=== PATIENT | male | born 1965 ===

== ENCOUNTER 2019-07-02 07:45 | Inpatient (IN) | payer OTHER ==
[~2019-07-02] VITALS: Ht 170.2 cm; Wt 70.3 kg
[~2019-07-02 07:45] MED LIST: ACET325 PO; ACET325 PT; ALBU3IS INH; ALBU3IS NEB; ALEN70 PEG; ANTI-FUNGAL CR113 GM TOP; BACL10 PO; BACL20 PEG; BISA10S PR; Baclofen20 MG PT; CHOL10002 PO; CHOL10002 PT; CODGUAEL PT; Calmoseptine Oi71 GM TP; Ciprofloxa400 MG/200 IV; DEPAKENE S PT; DIVA125 PO; DIVA125EC PO; DIVA500EC; DOCU100 PT; FAMO20 PO; HEPARIN SOD U SC; HYDMETSO BOTHEYES; IBUP100S PO; ISOSOURCE 1.51000 ML PT; JEVITY CA PT; Keppra100 MG/1 M PT; LAMO100; LANS15EC PT; LAVAP17G PO; LEVE500; LEVE500 PEG; LEVE500 PO; LEVO750 PT; Lacri-Lube S.O3.5 GM BOTHEYES; Laxative5 M1 PT; MICO100S TOP; Milk Of Ma800 MG/5 M PT; NAPR500 PO; NYSTRITC TOP; OMEP20ER PO; OPTLUBOPO OD; PANT40 PO; Phenergan25 MG PR; Prevacid Soluta30 MG PT; ROBITUSSIN COU118 ML PT; SACC250C PO; TAZICEF IV; TRIPLE ANTIBIOT28 GM TP; Tazicef2 GM IV; VALP250 PEG; VALP250S60 PO; VALP250S60 PT; [UNRECOGNIZED DRUG - OTHER] SC
[2019-07-02 08:41] LABS: BASOPHILS ABSOLUTE AUTO 0.02 K/mm3 (0.00-0.23); BASOPHILS PERCENT AUTO 0 % (0-2); EOSINOPHILS ABSOLUTE AUTO 0.04 K/mm3 (0.00-0.68); EOSINOPHILS PERCENT AUTO 0 % (0-6); Hematocrit 45.9 % (37.0-53.0); Hemoglobin 15.4 g/dL (13.5-17.5); IMMATURE GRAN ABSOLUTE AUTO 0.04 K/mm3 (0.00-0.10); IMMATURE GRAN PERCENT AUTO 0 % (0-1); LYMPHOCYTES ABSOLUTE AUTO 0.99 K/mm3 (0.84-5.20); LYMPHOCYTES PERCENT AUTO 9 % (21-46); MONOCYTES ABSOLUTE AUTO 0.67 K/mm3 (0.16-1.47); MONOCYTES PERCENT AUTO 6 % (4-13); Mean Corpuscular HGB 31.4 pg (26.0-34.0); Mean Corpuscular HGB Conc 33.6 g/dL (31.5-36.5); Mean Platelet Volume 11.6 fL (9.1-12.4); NEUTROPHILS ABSOLUTE AUTO 9.22 K/mm3 (1.96-9.15); NEUTROPHILS PERCENT AUTO 84 % (41-73); Platelet Count 245 K/mm3 (150-400); RDW Coefficient Variation 12.6 % (11.7-14.2); RDW Standard Deviation 43.2 fL (35.1-46.3); Red Blood Cell Count 4.91 M/mm3 (4.30-5.90); White Blood Cell Count 10.98 K/mm3 (4.00-11.30)
[2019-07-02 08:43] LABS: Mean Corpuscular Volume 94 fL (80-100)
[2019-07-02 09:02] LABS: Alanine Aminotransfer (ALT/SGP 16 U/L (12-78); Albumin/Globulin Ratio 0.8 (0.8-1.8); Alk Phos 166 U/L (50-136); Anion Gap 5 mmol/L (6-16); Aspartate Aminotrans (AST/SGOT 14 U/L (12-37); Bilirubin, Total 0.4 mg/dL (0.1-1.0); Blood Urea Nitrogen 14 mg/dL (8-24); Bun/Creatinine Ratio 20.8 (12.0-20.0); CO2, Blood 29 mmol/L (21-32); Chloride, Blood 105 mmol/L (98-108); Creatinine, Blood 0.67 mg/dL (0.60-1.20); Glomerular Filtration Rate >60 (60-); Glucose, Blood 86 mg/dL (70-99); Potassium, Blood 4.1 mmol/L (3.5-5.5); Sodium, Blood 139 mmol/L (136-145); Troponin I <0.015 ng/mL (0.000-0.040)
--- NOTE | 2019-07-02 14:19 | NUR ---
Pt visit this afternoon. Pt is resting in bed and responds with yes or no questions by shaking his head. Pt's caregiver Emilee is at bedside. Pt reports pain in his left hand and rates it at 10/10. Emilee reports Pt takes tylenol and ibuprofen at home to manage his pain. Currently Tylenol is on emar and Pt is agreeable with this medication for pain management. Bedside nurse Dottie is present during visit. Discussed POLST on file and confirmed with Pt that wishes are the same. POLST completed as DNR and comfort measures only. Pt is agreeable with receiving antibiotics as a comfort measure. POLST was completed by Pt's father Tam. Discussed with Pt's caregiver Emilee of Pt's needs. Emilee reports Pt requires assistance with feeding, dressing, bathing, and experiences intermittent incontinence. Pt occasionally is able to use urinal. Pt is a daniel lift for transfers and is unable to sit up right on his own. Pt is agreeable with palliative care to have further discussions at a later time. Pt is also agreeable with contacting father if needed. Spoke with Dr Go, discussed POLST and Pt's wishes. Changed Pt's code status from Full Code to DNR per V/O from Dr Go. Palliative Care will F/U for therapeutic visits, symptom management, and discussion with family when they visit.
--- NOTE | 2019-07-02 16:42 | NUR ---
Pt's father visiting this afternoon. Discussed goals of care including wishes for life sustaining measures. Pt earlier agreed to 2 completely different goals of care and with Pt answering yes and no only it is difficult to assess Pt's understanding. Previous POLST forms completed has been by Pt's father Tam. Educated Tam on life sustaining measures including risk factors. Tam reports Pt's wishes are to be a DNR. Tam also calls his and discusses with her. This RN could her through the phone saying Pt needs to be a DNR. Assisted Tam in completing new POLST for Pt with choices of DNR and Limited Treatment. Educated Tam on disease process and trajectory of disease with V/U made by Tam. Tam reports no other concerns at this time. Pt appears comfortable with no S/S of distress at this time. Spoke with bedside nurse and discussed case. Spoke with Dr Go and she signs new completed POLST. Faxed copy of POLST to medical records and placed original POLST in chart. Original POLST will need to return home with Pt. Palliative Care will remain available.
--- NOTE | 2019-07-02 18:42 | NUR ---
SHIFT NOTE PT ARRIVED FROM ED WITH LIGHTNING ROD ERECTOR, ADMIT QUESTIONS ARE ANSWERED BY CAREGIVER FROM [facility]. PT ALERT, CONFUSED WITH GARBLED SPEECH WHICH PER CAREIGVER IS PT'S BASELINE. PT c HX OF CEREBRAL PALSY. BOOTIES PUT ON FEET TO PREVENT BREAKDOWN. MEDIPLEX PLACED ON COCYX FOR STAGE 1 BREAKDOWN NOTED, SKIN REMAINS INTACT ONLY REDDENED. PT WITH PRODUCTIVE SOUNDING COUGH ABLE TO SUCTION A SCANT AMT OF SPUTUM. CONDOM CATH PLACED.
--- NOTE | 2019-07-03 00:42 | NUR ---
NO IV ACCESS PT RECEIVING MEDICATIONS VIA PEG TUBE. CALL TO RAM CAR OPERATOR SADIA TO REPORT PT SELF REMOVAL OF IV W/ OKAY FOR PT TO BE W/OUT IV ACCESS "FOR TONIGHT" & TO THEN REEVALUATE NEED FOR IV TOMORROW.
[2019-07-03 03:42] LABS: BASOPHILS ABSOLUTE AUTO 0.02 K/mm3 (0.00-0.23); BASOPHILS PERCENT AUTO 0 % (0-2); EOSINOPHILS ABSOLUTE AUTO 0.03 K/mm3 (0.00-0.68); EOSINOPHILS PERCENT AUTO 0 % (0-6); Hematocrit 47.6 % (37.0-53.0); Hemoglobin 15.9 g/dL (13.5-17.5); IMMATURE GRAN ABSOLUTE AUTO 0.05 K/mm3 (0.00-0.10); IMMATURE GRAN PERCENT AUTO 1 % (0-1); LYMPHOCYTES ABSOLUTE AUTO 1.27 K/mm3 (0.84-5.20); LYMPHOCYTES PERCENT AUTO 17 % (21-46); MONOCYTES ABSOLUTE AUTO 0.71 K/mm3 (0.16-1.47); MONOCYTES PERCENT AUTO 9 % (4-13); Mean Corpuscular HGB 32.1 pg (26.0-34.0); Mean Corpuscular HGB Conc 33.4 g/dL (31.5-36.5); Mean Corpuscular Volume 96 fL (80-100); Mean Platelet Volume 11.6 fL (9.1-12.4); NEUTROPHILS ABSOLUTE AUTO 5.56 K/mm3 (1.96-9.15); NEUTROPHILS PERCENT AUTO 73 % (41-73); Platelet Count 275 K/mm3 (150-400); RDW Coefficient Variation 12.4 % (11.7-14.2); RDW Standard Deviation 43.5 fL (35.1-46.3); Red Blood Cell Count 4.96 M/mm3 (4.30-5.90); White Blood Cell Count 7.64 K/mm3 (4.00-11.30)
[2019-07-03 04:03] LABS: Alanine Aminotransfer (ALT/SGP 20 U/L (12-78); Albumin/Globulin Ratio 0.7 (0.8-1.8); Alk Phos 171 U/L (50-136); Anion Gap 4 mmol/L (6-16); Aspartate Aminotrans (AST/SGOT 18 U/L (12-37); Bilirubin, Total 0.4 mg/dL (0.1-1.0); Blood Urea Nitrogen 12 mg/dL (8-24); Bun/Creatinine Ratio 16.9 (12.0-20.0); CO2, Blood 30 mmol/L (21-32); Chloride, Blood 110 mmol/L (98-108); Creatinine, Blood 0.71 mg/dL (0.60-1.20); Globulin, Blood 4.2 g/dL (2.2-4.0); Glomerular Filtration Rate >60 (60-); Glucose, Blood 72 mg/dL (70-99); Magnesium, Blood 2.2 mg/dL (1.6-2.4); Phosphorus, Blood 3.2 mg/dL (2.5-4.9); Potassium, Blood 3.9 mmol/L (3.5-5.5); Sodium, Blood 144 mmol/L (136-145); Total Protein, Blood 7.2 g/dL (6.4-8.2)
[2019-07-03 06:21] LABS: Adenovirus Not Detected (NOT DETECT); Bordetella pertussis Not Detected (NOT DETECT); Chlamydophila pneumoniae Not Detected (NOT DETECT); Coronavirus 229E Not Detected (NOT DETECT); Coronavirus HKU1 Not Detected (NOT DETECT); Coronavirus NL63 Not Detected (NOT DETECT); Coronavirus OC43 Not Detected (NOT DETECT); Human Metapneumovirus Not Detected (NOT DETECT); Human Rhinovirus/Enterovirus Not Detected (NOT DETECT); Influenza A Not Detected (NOT DETECT); Influenza A/2009-H1 Not Detected (NOT DETECT); Influenza A/H1 Not Detected (NOT DETECT); Influenza A/H3 Not Detected (NOT DETECT); Influenza B Not Detected (NOT DETECT); Mycoplasma pneumoniae Not Detected (NOT DETECT); Parainfluenza Virus 1 Not Detected (NOT DETECT); Parainfluenza Virus 2 Not Detected (NOT DETECT); Parainfluenza Virus 3 Not Detected (NOT DETECT); Parainfluenza Virus 4 Not Detected (NOT DETECT); Respiratory Syncytial Virus Not Detected (NOT DETECT)
--- NOTE | 2019-07-03 06:25 | NUR ---
SHIFT SUMMARY PT ALERT, ANSWERING SOME Y/N Q'S. PT LAUGHING W/ CAREGIVER WHEN CAREGIVER AT BEDSIDE TO SEE PT, OTHERWISE PT FLAT AND WITHDRAWN. VSS. SPO2 > 92% ON 3.5L NC. MONITOR SHOWS NSR, HR 70'S. TF & FLUSHES VIA PEG TUBE PER TF SCHEDULE W/ HOB ELEVATED. PT TOLERATING WELL. PT W/ LOOSE, BROWN/YELLOW BM'S THIS SHIFT. CONDOM CATH IN PLACE, DRAINING CLEAR YELLOW URINE. PT W/ NO IV ACCESS AT THIS TIME W/ OKAY FROM W/ PLAN FOR REEVALUATION OF IV NEED TODAY. Q2H REPOSITIONING BY STAFF. WILL CONTINUE TO MONITOR AND PROVIDE CARE UNTIL REPORT OFF TO DAY SHIFT RN.
--- NOTE | 2019-07-03 11:31 | NUR ---
NUTRITIONAL FORMULA INFUSING WELL
--- NOTE | 2019-07-03 14:21 | NUR ---
AWAITING MEDICATIONS FROM PHARMACY FOR 1400 MEDICATION ADMIN
--- NOTE | 2019-07-03 16:36 | NUR ---
PT REPORTED ABD PAIN THAT WAS RELIEVED WITH TYLENOL ADMINISTRATION. ABD SOFT AND ROUND, DENIES PAIN WITH PALPATION. PT REPOSITIONED AT THIS TIME
--- NOTE | 2019-07-03 16:54 | NUR ---
SHIFT NOTE PT REMAINED AT BASELINE MENTAL STATUS T/O SHIFT. Q2 HOUR TURNING PERFORMED T/O SHIFT. PT HAS NOT REQUIRED ANY SUCTIONING TODAY. URINE DRAINGING WELL TO CONDOM CATH. STAFF FROM [facility] WAS ONLY PRESENT ONCE THIS AM. PT DID REPORT SOME ABD PAIN TOWARDS THE END OF SHIFT THAT HE REPORTS RESOLVED WITH ADMIN OF TYLENOL. G TUBE FLUSHED EASILY. PT DID RECIEVE TWO INFUSOIONS OF NUTRITIONAL FORMULA. PT WAS VISITED THIS AM BY DIETARY. VSS T/O SHIFT
--- NOTE | 2019-07-03 17:18 | NUR ---
RT HAS JUST COMPLETED WITH THERAVEST TREATMENT WILL HOLD NUTRITION SUUPLEMENT FOR 30 MIN POST TREATMENT
--- NOTE | 2019-07-03 20:07 | NUR ---
CARE ASSUMPTION PT ALERT, SAYING SOME WORDS, ANSWERING Y/N Q'S. MONITOR SHOWS ST, HR 110'S. LUNG SOUNDS COARSE, DIM IN BASES. SPO2 > 92% ON 3L NC. VSS. CONDOM CATH PATENT AND DRAINING CLEAR YELLOW URINE. PEG TUBE CLAMPED. WILL CONTINUE TO MONITOR AND PROVIDE CARE.
[2019-07-04 03:32] LABS: BASOPHILS ABSOLUTE AUTO 0.01 K/mm3 (0.00-0.23); BASOPHILS PERCENT AUTO 0 % (0-2); EOSINOPHILS PERCENT AUTO 0 % (0-6); Hematocrit 45.4 % (37.0-53.0); Hemoglobin 14.8 g/dL (13.5-17.5); IMMATURE GRAN ABSOLUTE AUTO 0.04 K/mm3 (0.00-0.10); IMMATURE GRAN PERCENT AUTO 1 % (0-1); LYMPHOCYTES ABSOLUTE AUTO 1.39 K/mm3 (0.84-5.20); LYMPHOCYTES PERCENT AUTO 18 % (21-46); MONOCYTES ABSOLUTE AUTO 0.69 K/mm3 (0.16-1.47); MONOCYTES PERCENT AUTO 9 % (4-13); Mean Corpuscular HGB 31.8 pg (26.0-34.0); Mean Corpuscular HGB Conc 32.6 g/dL (31.5-36.5); Mean Corpuscular Volume 98 fL (80-100); NEUTROPHILS ABSOLUTE AUTO 5.48 K/mm3 (1.96-9.15); NEUTROPHILS PERCENT AUTO 72 % (41-73); Platelet Count 266 K/mm3 (150-400); RDW Coefficient Variation 12.4 % (11.7-14.2); RDW Standard Deviation 44.4 fL (35.1-46.3); Red Blood Cell Count 4.65 M/mm3 (4.30-5.90); White Blood Cell Count 7.61 K/mm3 (4.00-11.30)
[2019-07-04 03:56] LABS: Anion Gap 6 mmol/L (6-16); Blood Urea Nitrogen 16 mg/dL (8-24); Bun/Creatinine Ratio 23.4 (12.0-20.0); CO2, Blood 29 mmol/L (21-32); Chloride, Blood 108 mmol/L (98-108); Creatinine, Blood 0.69 mg/dL (0.60-1.20); Glomerular Filtration Rate >60 (60-); Glucose, Blood 114 mg/dL (70-99); Potassium, Blood 3.9 mmol/L (3.5-5.5); Sodium, Blood 143 mmol/L (136-145)
--- NOTE | 2019-07-04 04:05 | NUR ---
SHIFT SUMMARY PT CONTINUES TO BE ALERT, ANSWERING Y/N Q'S. VSS. MONITOR SHOWS NSR/ST, HR 70-120. SPO2 > 92% ON 3L NC. PT W/ OCCASSIONAL PRODUCTIVE COUGH W/ CLEAR, THIN SPUTUM. PT NPO, TOLERATING SCHEDULED TF/FLUSHES VIA PEG TUBE WELL. CONDOM CATH IN PLACE W/ CLEAR YELLOW URINE. Q2H REPOSITIONING W/ MAX ASSIST BY 2 STAFF MEMBERS. WILL CONTINUE TO MONITOR AND PROVIDE CARE UNTIL REPORT OFF TO DAY SHIFT RN.
[2019-07-04] MEDS ORDERED: OXYGEN (13:40)
--- NOTE | 2019-07-04 14:12 | NUR ---
REPORT TO [facility], THEY ARE ON WAY FOR TRANSPORT
--- NOTE | 2019-07-04 15:13 | NUR ---
PT D/C TO SKILLED NURSING WITH CAREGIVER. ALL BELONGINGS RETURNED TO PT, PT OTD IN OWN W/C WITH CAREPROVIDER. CARE PROVIDER EXPRESSED UNDERSTANDING OF D/C TEACHING AND CHANGE OF O2 TO 3L VIA NASAL CANNULA. PT REMAINS AT HIS BASELINE AT D/C
== END 2019-07-04 15:04 | disposition home or self-care (01) | DRG 189 ==
LOC: ER 07:45 → PCU 10:03
PROVIDERS: Hospitalist; Nurse Practitioner Acute Care; Physician Assistant; ADMIT Internal Medicine
DX: J96.21 Acute and chronic respiratory failure with hypoxia (principal); K21.9 Gastro-esophageal reflux disease without esophagitis; G80.9 Cerebral palsy, unspecified; G40.909 Epilepsy, unspecified, not intractable, without status epilepticus; E55.9 Vitamin D deficiency, unspecified; Z88.2 Allergy status to sulfonamides; Z99.81 Dependence on supplemental oxygen
CPT/HCPCS: 0099U; 36415; 71046; 80048; 80053; 83605; 83735; 83880; 84100; 84145; 84484; 85025; 87449; 90686; 93005; 93010; 94640; 94667; 94668; 94760; 96372-59; 96374; 96375; 99284-25; A9270; J0456; J0696; J1650; J2765; J7050; J7512

== ENCOUNTER 2020-09-03 14:24 | Emergency (ER) | payer OTHER ==
[~2020-09-03] VITALS: Ht 165.1 cm; Wt 54.4 kg
[~2020-09-03 14:24] MED LIST changes: +OXYGEN
[2020-09-03] MEDS ORDERED: Vibramycin100 MG PO (16:08)
== END 2020-09-03 17:58 | disposition home or self-care (01) ==
LOC: ER 14:24
DX: J18.9 Pneumonia, unspecified organism (principal); K21.9 Gastro-esophageal reflux disease without esophagitis; Z88.2 Allergy status to sulfonamides; Z93.1 Gastrostomy status; Z98.890 Other specified postprocedural states; Z79.899 Other long term (current) drug therapy
CPT/HCPCS: 43762; 71045; 99285-25

== ENCOUNTER 2021-01-23 07:52 | Day surgery (SDC) | payer OTHER ==
[~2021-01-23 07:52] MED LIST changes: +CLOBET30L TOP; +IPRAT-ALBUT 0.5-3 ML; +OSMOLITE CAL PT; +OXYB5 PT; +OXYTROL1 EACH TOP; +Vibramycin100 MG PO; +[UNRECOGNIZED DRUG - OTHER] PT
--- NOTE | 2021-01-23 09:00 | NUR ---
History, Chart, Medications and Allergies reviewed before start of procedure. Lungs clear T/O to Auscultation. Pre-Op teaching done. Pt verbalizes understanding. PT HAS CP AND IS WHEELCHAIR BOUND AND NON-VERBAL. PT CAN OBEY COMMENDS AND IS RESPONSIVE WITH QUESTIONS VIA NODDING HIS HEAD. PT HAD PEG TUBE. PRESENTS WITH CAREGIVER.
--- NOTE | 2021-01-23 11:47 | NUR ---
REPORT TO KRISSY BARKLEY. HAD TO FIND SYRING FOR PEG TUBE. 70CC OF WARM WATER FLUSHED AFTER PAIN MEDS GIVEN. DRESSING INTACT.
--- NOTE | 2021-01-23 12:30 | NUR ---
VSS. BREATHING RA. BIOX 91%, IMPROVES WITH DEEP BREATHING AND COUGHING. PATIENT SHAKES HEAD "YES" WHEN ASKED IF PAIN MEDICINE WORKING AND AGAIN "YES" TO INDICATE 09/17. DENIES NAUSEA. Gauze dressing to left groin surgery site clean, dry, intact with no visible drainage, swelling, erythema or bruising noted.
--- NOTE | 2021-01-23 12:34 | NUR ---
Patient's attends changed in step recovery due to incontinent void.
--- NOTE | 2021-01-23 12:56 | NUR ---
Discharge instructions reviewed with caregiver, Regan, who is also ride home. Caregiver verbalizes understanding of discharge instructions. Copy given to take to retirement. Patient denies pain and nausea. No body language or verbalization indicative of distress. Patient does not speak, but indicates understanding by shaking his head. Skin color pink, non-diaphoratic. VSS. Breathing RA. Biox 91%.
[2021-03-28] MEDS ORDERED: IBUP100S PO (10:31)
[2021-03-28] MEDS ORDERED: IPRAT-ALBUT 0.5-3 ML INH (10:31)
[2021-03-28] MEDS ORDERED: Colace250 MG PO (10:31)
[2021-03-28] MEDS ORDERED: SACC250C PO (10:31)
[2021-03-28] MEDS ORDERED: KEPPRA100 MG/1 M PO (10:32)
[2021-03-28] MEDS ORDERED: HYDR1TAB94 PO (10:32)
[2021-03-28] MEDS ORDERED: OMEP20ER PO (10:32)
[2021-03-28] MEDS ORDERED: Oxybutynin5 MG/5 ML PO (10:33)
[2021-03-28] MEDS ORDERED: PROM25 PO (10:33)
[2021-03-28] MEDS ORDERED: VALPROIC A250 MG/52 PO (10:33)
[2021-03-28] MEDS ORDERED: VITAMIN D31000 UNI1 PO (10:34)
[2021-03-28] MEDS ORDERED: Baclofen20 MG PO (10:35)
[2021-03-28] MEDS ORDERED: DULCOLAX400 MG/5 M PO (10:36)
[2021-03-28] MEDS ORDERED: MIRALAX17 GM PT (10:37)
[2021-03-28] MEDS ORDERED: AZIT250 PO (14:51)
[2021-03-28] MEDS ORDERED: AMOCLA875 PO (14:51)
== END 2021-01-23 12:55 | disposition home or self-care (01) ==
LOC: ORSCMMR 07:52 → ORD 09:00 → ORSCMMR 12:55
PROVIDERS: Surgery
PROC: 0YU60JZ Supplement Left Inguinal Region with Synthetic Substitute, Open Approach (ICD-10-PCS; principal; 2021-01-23 09:00)
DX: K40.90 Unilateral inguinal hernia, without obstruction or gangrene, not specified as recurrent (principal); J45.909 Unspecified asthma, uncomplicated; K21.9 Gastro-esophageal reflux disease without esophagitis; R56.9 Unspecified convulsions; E03.9 Hypothyroidism, unspecified; Z79.899 Other long term (current) drug therapy
CPT/HCPCS: A9270; C1781; J0690; J1100; J2405; J2704; J3010; J7120

== ENCOUNTER 2021-03-28 10:12 | Emergency (ER) | payer OTHER | END 2021-03-28 15:11 | LOC: ER 10:12 | DX: J18.9 Pneumonia, unspecified organism (principal); K52.9 Noninfective gastroenteritis and colitis, unspecified; R63.3 Feeding difficulties; Z88.2 Allergy status to sulfonamides; Z79.899 Other long term (current) drug therapy ==

== ENCOUNTER 2021-07-13 07:53 | Day surgery (SDC) | payer OTHER ==
[~2021-07-13] VITALS: Ht 172.7 cm; Wt 57.2 kg
[~2021-07-13 07:53] MED LIST changes: +AMOCLA875 PO; +AZIT250 PO; +Baclofen20 MG PO; +Colace250 MG PO; +DULCOLAX400 MG/5 M PO; +HYDR1TAB94 PO; +IPRAT-ALBUT 0.5-3 ML INH; +KEPPRA100 MG/1 M PO; +MIRALAX17 GM PT; +Oxybutynin5 MG/5 ML PO; +PROM25 PO; +VALPROIC A250 MG/52 PO; +VITAMIN D31000 UNI1 PO
--- NOTE | 2021-07-13 08:47 | NUR ---
PT ARRIVES WITH CAREGIVER BENJAMINCHERI-WILFRID FANNIE. WHO HAS DEMENTIA (BUT IS SIGNING FOR SURGERY. HIS EFRAÍN HAD TO LEAVE TO GET INSURANCE CARDS. PT HAS CP AN IS IN A WHEELCHAIR, PT'S FATHER IS ALSO IN A WHEELCHAIR. Surgical site prepped with 2% Chlorhexidine cloth wipe. History, Chart, Medications and Allergies reviewed before start of procedure. Patient confirms NPO status and agrees with scheduled surgery. Pre-Op teaching done. Pt verbalizes understanding. Patient States Post-Procedure ride home has been arranged.
--- NOTE | 2021-07-13 11:48 | NUR ---
SHAKES HEAD YES WHEN ASKED IF HE WAS COLD WARM BLANKETS PLACED. SHEKES HEAD NO WHEN ASKED IF PAIN LAYING QUIETLY WITH EYES OPEN RESP E/U
--- NOTE | 2021-07-13 13:10 | NUR ---
PT DENIES DIZZINESS, LIGHTHEADEDNESS, BEFORE AND AFTER GETTING INTO W/C PER LIFT. PT DENIES N/V. DENIES PAIN. DRESSING REMAINS C/D/I. CAREGIVER ASSISTED WITH CLEANING PT'S BOTTOM, PLACING NEW ATTENDS AND GETING PT DRESSED. Discharge instructions reviewed with patient. Patient AND OUT OF TOWN COLLECTION CLERK WHO verbalizes understanding. COPY GIVEN. PT IV OUT WNL. CLARIFIED PRESCRIPTION, SEE COPY. Discharged via PT'S W/C WITH CAREGIVER GIVING PT RIDE HOME. PT VSS.
== END 2021-07-13 13:10 | disposition home or self-care (01) ==
LOC: ORSCMMR 07:53 → ORD 09:15 → ORSCMMR 09:15
PROVIDERS: Surgery
PROC: 0YU50JZ Supplement Right Inguinal Region with Synthetic Substitute, Open Approach (ICD-10-PCS; principal; 2021-07-13 09:15)
DX: K40.90 Unilateral inguinal hernia, without obstruction or gangrene, not specified as recurrent (principal); J45.909 Unspecified asthma, uncomplicated; K21.9 Gastro-esophageal reflux disease without esophagitis; E11.9 Type 2 diabetes mellitus without complications; E03.9 Hypothyroidism, unspecified; J80 Acute respiratory distress syndrome; Z99.81 Dependence on supplemental oxygen; Z79.899 Other long term (current) drug therapy; G83.89 Other specified paralytic syndromes
CPT/HCPCS: C1781; J0690; J1100; J1885; J2405; J2704; J3010; J7120

== ENCOUNTER → 2022-01-21 | Outpatient (CLI) | payer OTHER | LOC: LAB SHORT 10:34 | DX: L89.309 Pressure ulcer of unspecified buttock, unspecified stage (principal) ==

== ENCOUNTER 2022-02-15 20:25 | Emergency (ER) | payer OTHER ==
[~2022-02-15] VITALS: Ht 172.7 cm; Wt 56.2 kg
[2022-02-15 21:11] LABS: BASOPHILS ABSOLUTE AUTO 0.02 K/mm3 (0.00-0.23); BASOPHILS PERCENT AUTO 0 % (0-2); EOSINOPHILS ABSOLUTE AUTO 0.05 K/mm3 (0.00-0.68); EOSINOPHILS PERCENT AUTO 1 % (0-6); Hematocrit 44.8 % (37.0-53.0); Hemoglobin 15.7 g/dL (13.5-17.5); IMMATURE GRAN ABSOLUTE AUTO 0.01 K/mm3 (0.00-0.10); IMMATURE GRAN PERCENT AUTO 0 % (0-1); LYMPHOCYTES ABSOLUTE AUTO 1.89 K/mm3 (0.84-5.20); LYMPHOCYTES PERCENT AUTO 32 % (21-46); MONOCYTES ABSOLUTE AUTO 0.65 K/mm3 (0.16-1.47); MONOCYTES PERCENT AUTO 11 % (4-13); Mean Corpuscular HGB 32.4 pg (26.0-34.0); Mean Corpuscular Volume 92 fL (80-100); Mean Platelet Volume 12.6 fL (9.1-12.4); NEUTROPHILS ABSOLUTE AUTO 3.28 K/mm3 (1.96-9.15); NEUTROPHILS PERCENT AUTO 56 % (41-73); Platelet Count 176 K/mm3 (150-400); RDW Coefficient Variation 12.2 % (11.7-14.2); RDW Standard Deviation 41.7 fL (35.1-46.3); Red Blood Cell Count 4.85 M/mm3 (4.30-5.90)
[2022-02-15 21:29] LABS: Albumin, Blood 2.5 g/dL (3.4-5.0); Albumin/Globulin Ratio 0.7 (0.8-1.8); Bilirubin, Total 0.6 mg/dL (0.1-1.0); Bun/Creatinine Ratio 27.3 (12.0-20.0); Calcium, Blood 8.6 mg/dL (8.5-10.1); Creatinine, Blood 0.73 mg/dL (0.60-1.20); Globulin, Blood 3.7 g/dL (2.2-4.0); Potassium, Blood 4.9 mmol/L (3.5-5.5); Total Protein, Blood 6.2 g/dL (6.4-8.2)
[2022-02-15] MEDS ORDERED: AZIT200SU PT (22:17)
== END 2022-02-15 22:55 | disposition home or self-care (01) ==
LOC: ER 20:25
PROVIDERS: Emergency Medicine
DX: J18.9 Pneumonia, unspecified organism (principal); G80.9 Cerebral palsy, unspecified; G40.909 Epilepsy, unspecified, not intractable, without status epilepticus; K21.9 Gastro-esophageal reflux disease without esophagitis; Z79.899 Other long term (current) drug therapy; Z88.2 Allergy status to sulfonamides; Z93.1 Gastrostomy status
CPT/HCPCS: 36415; 71045; 80053; 83605; 84484; 85025; 93005; 93010; 96374; 99285-25; A9270; J0696

== ENCOUNTER 2022-08-03 09:29 | Emergency (ER) | payer OTHER ==
[~2022-08-03] VITALS: Ht 165.1 cm; Wt 54.4 kg
[~2022-08-03 09:29] MED LIST changes: +AZIT200SU PT
[2022-08-03] MEDS ORDERED: ACET325 PO (10:03)
[2022-08-03] MEDS ORDERED: ALKA-SELTZER P1 EA19 PO (10:03)
[2022-08-03] MEDS ORDERED: Florastor250 MG PO (10:05)
[2022-08-03] MEDS ORDERED: DOC250 PO (10:05)
[2022-08-03] MEDS ORDERED: IPRAT-ALBUT 0.5-3 ML INH (10:06)
[2022-08-03] MEDS ORDERED: LEVE500 PO (10:06)
[2022-08-03] MEDS ORDERED: IBUP100S PO (10:06)
[2022-08-03] MEDS ORDERED: MICO100S VAG (10:07)
[2022-08-03] MEDS ORDERED: MIRALAX17 GM PO (10:07)
[2022-08-03] MEDS ORDERED: DULCOLAX400 MG/5 M PO (10:07)
[2022-08-03] MEDS ORDERED: ACETAMINOPHEN500 MG PO (11:25)
== END 2022-08-03 11:34 | disposition home or self-care (01) ==
LOC: ER 09:29
DX: S00.83XA Contusion of other part of head, initial encounter (principal); S00.33XA Contusion of nose, initial encounter; M54.2 Cervicalgia; V59.88XA Occupant (driver) (passenger) of pick-up truck or van injured in other specified transport accidents, initial encounter; Z20.822 Contact with and (suspected) exposure to COVID-19; Z99.81 Dependence on supplemental oxygen; Z99.3 Dependence on wheelchair
CPT/HCPCS: 70450; 72125